=== PATIENT | male | born 1990 | race Caucasian/White ===

== ENCOUNTER → 2017-10-15 | Outpatient (CLI) | payer BC ==
--- NOTE | 2017-10-15 15:52 | US ---
EXAMINATION TYPE: US thyroid st tissue head/neck DATE OF EXAM: 10/15/2017 COMPARISON: NONE CLINICAL HISTORY: R22.1 Localized Swelling Mass Neck. GLAND SIZE: Right Lobe: 6.3 x 1.7 x 1.8 cm Overall Parenchyma: homogenous Left Lobe: 5.3 x 1.4 x 1.6 cm Overall Parenchyma: homogeneous Isthmus Thickness: 0.4 cm NODULES RIGHT: # of nodules measured on right: 0 LEFT: # of nodules measured on left: 0 ISTHMUS: # of nodules measured in the isthmus: 0 Bilateral neck scanned, no evidence of lymphadenopathy. IMPRESSION: Thyroid measurements as described.
== END | disposition home or self-care (01) ==
LOC: RADUSWWP 13:35
PROVIDERS: ATTEND Family Medicine
DX: R22.1 Localized swelling, mass and lump, neck (principal)
CPT/HCPCS: 76536

== ENCOUNTER 2021-05-21 10:44 | Emergency (ER) | payer BC, OTHER ==
[2021-05-21 10:52] VITALS: PULSE 68; RESP 18; TEMP 99.3
--- NOTE | 2021-05-21 11:24 | XR ---
Left foot HISTORY: Pain following trauma. COMPARISON: None. TECHNIQUE: 2 views left foot were obtained. FINDINGS: There is dislocation of the first metatarsal phalangeal joint.. There are no fractures. The remaining osseous structures are intact. There is no radiopaque foreign body or abnormal soft tissue calcifica tion. IMPRESSION: Dislocation of the first metatarsal phalangeal joint.
--- NOTE | 2021-05-21 11:39 | ED ---
Lower Extremity Injury HPI - General Chief Complaint: Extremity Injury, Lower Stated Complaint: [facility] Toe injury/Diving Time Seen by Provider: 05/21/21 10:59 Source: patient, RN notes reviewed Mode of arrival: wheelchair Limitations: no limitations - History of Present Illness Initial Comments: This a 30-year-old male presents emergency Department chief complaint of left foot toe injury. Patient states that he has great toe shows some deformity states he has minimal to no discomfort he states he was diving became water noticed that it was deformed, painful to walk on no other complaints noted patient denies any discoloration. - Related Data Allergies Allergy/AdvReac Type Severity Reaction Status Date / Time root vegetable and fruit Allergy Rash/Hives Uncoded 05/21/21 10:52 Review of Systems ROS Statement: Those systems with pertinent positive or pertinent negative responses have been documented in the HPI. ROS Other: All systems not noted in ROS Statement are negative. Past Medical History Past Medical History: No Reported History Additional Past Medical History / Comment(s): torn acl History of Any Multi-Drug Resistant Organisms: None Reported Additional Past Surgical History / Comment(s): acl Past Psychological History: No Psychological Hx Reported Smoking Status: Current every day smoker Past Alcohol Use History: Occasional Past Drug Use History: None Reported General Exam Limitations: no limitations General appearance: alert, in no apparent distress Head exam: Present: atraumatic, normocephalic, normal inspection Respiratory exam: Present: normal lung sounds bilaterally. Absent: respiratory distress, wheezes, rales, rhonchi, stridor Cardiovascular Exam: Present: regular rate, normal rhythm, normal heart sounds. Absent: systolic murmur, diastolic murmur, rubs, gallop, clicks Extremities exam: Present: other (Left foot first digit there is not is deformity at the MTP joint) Course Vital Signs 05/21/21 10:49 Temperature 99.3 F Pulse Rate 68 Respiratory 18 Rate Blood Pressure 162/96 O2 Sat by Pulse 100 Oximetry Procedures - Orthopedic Joint Reduction Joint #1 Consent Obtained: verbal consent Side: left Joint Reduction Location: toe Analgesia: none Technique Used: traction/counter-traction Post-Reduction Neuro Exam: intact Post-Reduction Vascular Exam: intact Post Reduction X-Ray Obtained: Yes Post Reduction X-Ray Results: reduced Splint Applied: No Patient Tolerated Procedure: well Medical Decision Making - Medical Decision Making Patient presented for toe dislocations was easily reduced with no comp patients return parameters were discussed. Disposition Clinical Impression: Dislocation of toe, left, closed Disposition: HOME SELF-CARE Condition: Stable Instructions (If sedation given, give patient instructions): Finger Dislocation (ED) Additional Instructions: Please return to the Emergency Department if symptoms worsen or any other concerns. Is patient prescribed a controlled substance at d/c from ED?: No Referrals: Rehan Kennedy MD [Primary Care Provider] - 1-2 days Time of Disposition: 11:39
--- NOTE | 2021-05-21 11:50 | XR ---
Left big toe. HISTORY: Post reduction for dislocation COMPARISON: 05/21/2021 prereduction. TECHNIQUE: 3 views of the left big toe were obtained. FINDINGS: There has been reduction of the first metatarsal phalangeal dislocation. There is near anatomic align ment. There is no fracture. There is no radiopaque foreign body or abnormal soft tissue calcification . IMPRESSION: Satisfactory reduction of the dislocation of the first metatarsal phalangeal joint.
[2021-05-21 11:53] VITALS: BP 151/96
== END 2021-05-21 11:53 | disposition home or self-care (01) ==
LOC: EC 10:44
DX: S93.105A Unspecified dislocation of left toe(s), initial encounter (principal); F17.200 Nicotine dependence, unspecified, uncomplicated; X58.XXXA Exposure to other specified factors, initial encounter
CPT/HCPCS: 28630; 99284

== ENCOUNTER → 2021-05-30 | Outpatient (CLI) | payer OTHER ==
--- NOTE | 2021-05-30 16:05 | XR ---
EXAMINATION TYPE: XR foot complete LT DATE OF EXAM: 05/30/2021 CLINICAL HISTORY: pain TECHNIQUE: Frontal, lateral and oblique images of the left foot are obtained. COMPARISON: None. FINDINGS: There is no acute fracture/dislocation evident. The joint spaces appear within normal resendiz its. The overlying soft tissue appears unremarkable. IMPRESSION: There is no acute fracture or dislocation. ICD 10 NO FRACTURE, INITIAL EVALUATION
== END | disposition home or self-care (01) ==
LOC: RADXRMAIN 15:48
PROVIDERS: ATTEND Emergency Medicine
DX: M79.672 Pain in left foot (principal)

== ENCOUNTER 2024-08-23 13:13 | Emergency (ER) | payer BC ==
--- NOTE | 2024-08-23 14:08 | ED ---
Wound/Laceration HPI - General Chief Complaint: Wound/Laceration Stated Complaint: L foot injury Time Seen by Provider: 08/23/24 14:06 Source: patient, RN notes reviewed Mode of arrival: ambulatory Limitations: no limitations - History of Present Illness Initial Comments: 34-year-old male presenting for left foot injury prior to arrival. States he was walking out of the [place] when he stepped on something that went through his boot and into the bottom of his foot. Last tetanus unknown. - Related Data Previous Rx's Medication Instructions Recorded Ciprofloxacin HCl [Cipro] 500 mg PO Q12HR 5 Days #10 tablet 08/23/24 Allergies Allergy/AdvReac Type Severity Reaction Status Date / Time Penicillins Allergy Anaphylaxis Verified 08/23/24 13:37 root vegetable and fruit Allergy Rash/Hives Uncoded 05/21/21 10:52 Review of Systems ROS Statement: Those systems with pertinent positive or pertinent negative responses have been documented in the HPI. ROS Other: All systems not noted in ROS Statement are negative. Past Medical History Past Medical History: No Reported History Additional Past Medical History / Comment(s): torn acl History of Any Multi-Drug Resistant Organisms: None Reported Additional Past Surgical History / Comment(s): acl Past Psychological History: No Psychological Hx Reported Smoking Status: Current every day smoker Past Alcohol Use History: Occasional Past Drug Use History: None Reported General Exam - General Exam Comments Initial Comments: Visual Physical Exam Vital signs reviewed General: Well-appearing, nontoxic, no acute distress. Head: Normocephalic, atraumatic Eyes: PERRLA, EOMI ENT: Airway patent Chest: Nonlabored breathing Skin: No visual rash, normal skin tone Neuro: Alert and oriented 3 Musculoskeletal: No gross abnormalities Limitations: no limitations General appearance: alert, in no apparent distress Head exam: Present: atraumatic, normocephalic, normal inspection Left Lower Leg exam: Present: normal inspection, full ROM. Absent: tenderness, swelling Ankle exam: Present: normal inspection, full ROM. Absent: tenderness, swelling Foot/Toe exam: Present: full ROM, tenderness, puncture wound (2 cm puncture wound with protruding subcutaneous fat on ventral aspect of left foot). Absent: erythema Neurovascular tendon exam: Present: no vascular compromise. Absent: pulse defi cit, abnormal cap refill, sensory deficit Neurological exam: Present: alert, oriented X3 Psychiatric exam: Present: normal affect, normal mood Skin exam: Present: warm, dry, intact, normal color. Absent: rash Course Vital Signs 08/23/24 13:34 Temperature 97.4 F L Pulse Rate 94 Respiratory 17 Rate Blood Pressure 116/68 O2 Sat by Pulse 98 Oximetry Procedures - Laceration Laceration #1 Consent Obtained: verbal consent Indication: laceration Site: foot Size (cm): 2 Description: irregular Depth: simple, single layer Sedation/Analgesia: none Anesthetic Used: lidocaine 1%, without epi Anesthesia Technique: local infiltration Amount (mls): 4 Pre-repair: wound explored, irrigated extensively, deep structures intact Type of Sutures: nylon Size of Sutures: 4-0 Number of Sutures: 2 Technique: simple, interrupted Patient Tolerated Procedure: well, no complications Additional Comments: Neurovascularly intact status post procedure Medical Decision Making - Medical Decision Making I completed the quick note portion of this chart signed Shelly Nava PA-C Was pt. sent in by a medical professional or institution ([facility], CASE PACKER, urgent care, hospital, or shelter...) When possible be specific @ -No Did you speak to anyone other than the patient for history (EMS, parent, family, police, friend...)? What history was obtained from this source @ -No Did you review nursing and triage notes (agree or disagree)? Why? @ -I reviewed and agree with nursing and triage notes Were old charts reviewed (outside hosp., previous admission, EMS record, old EKG, old radiological studies, urgent care reports/EKG's, shelter records)? Report findings @ -No old charts were reviewed Differential Diagnosis (chest pain, altered mental status, abdominal pain women, abdominal pain men, vaginal bleeding, weakness, fever, dyspnea, syncope, headache, dizziness, GI bleed, back pain, seizure, CVA, palpatations, mental health, musculoskeletal)? @ -Differential Musculoskeletal Muscular strain, contusion, ligament sprain, fracture, arthritis, septic arthritis, bursitis, cellulitis, muscle spasm, nerve compression, DVT, arterial occlusion, herpes zoster, electrolyte abnormality, tumor.... This is not meant to be in all inclusive list EKG interpreted by me (3pts min.). @ -None X-rays interpreted by me (1pt min.). @ -X-ray left foot reveals no acute process or foreign body CT interpreted by me (1pt min.). @ -None done U/S interpreted by me (1pt. min.). @ -None done What testing was considered but not performed or refused? (CT, X-rays, U/S, labs)? Why? @ -None What meds were considered but not given or refused? Why? @ -None Did you discuss the management of the patient with other professionals (professionals i.e. DrMiriam, PA, CASE PACKER, lab, RT, psych nurse, community mental health social worker, injection mold tooling technician, teacher, parachute/combatant diver officer, rn case mgr)? Give summary @ -No Was smoking cessation discussed for >3mins.? @ -No Was critical care preformed (if so, how long)? @ -No Were there social determinants of health that impacted care today? How? (Homelessness, low income, unemployed, alcoholism, drug addiction, transportation, low edu. Level, literacy, decrease access to med. care, [facility], rehab)? @ -No Was there de-escalation of care discussed even if they declined (Discuss DNR or withdrawal of care, Hospice)? DNR status @ -No What co-morbidities impacted this encounter? (DM, HTN, Smoking, COPD, CAD, Cancer, CVA, ARF, Chemo, Hep., AIDS, mental health diagnosis, sleep apnea, morbid obesity)? @ -None Was patient admitted / discharged? Hospital course, mention meds given and route, prescriptions, significant lab abnormalities, going to OR and other pertinent info. @ -Discharge. 34-year-old male presenting for puncture wound to left foot prior to arrival. There is a 2 cm gaping puncture wound with subcutaneous fat protruding on ventral aspect of left foot. Neurovascularly intact. Tetanus was updated. X-ray left foot reveals no acute process or foreign body. Wound was thoroughly irrigated and 2 sutures were performed to achieve homeostasis. Wound was dressed appropriately. Appropriate return precautions and follow-up care discussed. Advised to follow-up in 7 days for suture removal. Patient was provided with outpatient prescription for antibiotic for prophylaxis. Case was discussed with the ED attending Dr. Martin. Undiagnosed new problem with uncertain prognosis? @ -No Drug Therapy requiring intensive monitoring for toxicity (Heparin, Nitro, Insulin, Cardizem)? @ -No Were any procedures done? @ -Yes, 2 sutures were performed to left foot Diagnosis/symptom? @ -Left foot puncture wound Acute, or Chronic, or Acute on Chronic? @ -Acute Uncomplicated (without systemic symptoms) or Complicated (systemic symptoms)? @ -Uncomplicated Side effects of treatment? @ -No Exacerbation, Progression, or Severe Exacerbation? @ -No Poses a threat to life or bodily function? How? (Chest pain, [place], [place], pneumonia, PE, COPD, DKA, ARF, appy, cholecystitis, CVA, Diverticulitis, Homicidal, Suicidal, threat to staff... and all critical care pts) @ -No Disposition Clinical Impression: Puncture wound of left foot Disposition: HOME SELF-CARE Condition: Stable Instructions (If sedation given, give patient instructions): Puncture Wound (ED) Additional Instructions: Take ciprofloxacin as prescribed. Follow-up in 7 days for suture removal. Keep wound dry for the first 24 hours, then you may gently wash with antibacterial soap and water. Please return to the Emergency Department if symptoms worsen or any other concerns. Prescriptions: Ciprofloxacin HCl [Cipro] 500 mg PO Q12HR 5 Days #10 tablet Is patient prescribed a controlled substance at d/c from ED?: No Referrals: Rehan Kennedy MD [Primary Care Provider] - 1-2 days Time of Disposition: 16:53
--- NOTE | 2024-08-23 14:33 | XR ---
EXAMINATION TYPE: XR foot complete LT DATE OF EXAM: 08/23/2024 2:22 PM COMPARISON: None. CLINICAL INDICATION: Male, 34 years old with history of left foot injury, pain TECHNIQUE: Frontal, lateral, and oblique images of the left foot are obtained. FINDINGS: There is no acute fracture/dislocation evident in the left foot. The joint spaces in the left foot appear within normal limits. The overlying soft tissue appears unremarkable. IMPRESSION: There is no acute fracture or dislocation in the left foot. [facility], , 08/23/2024 2:31 PM
[2024-08-23] MEDS: IBUPROFEN 800 MG TAB PO STA (16:28)
[2024-08-23] MEDS: LIDOCAINE 1% INJ 10MG/ML (20 ML MDV) SQ ONE (16:28)
[2024-08-23 17:08] VITALS: BP 131/88; PULSE 88; RESP 16; TEMP 97.9
[2024-08-23] MEDS: CIPROFLOXACIN HCL 500 MG TAB PO STA (17:08)
[2024-08-23] MEDS: DIPH,PERTUS(ACELL)TETVAC-LF 0.5 ML VIAL IM ONE (17:12)
== END 2024-08-23 17:13 | disposition home or self-care (01) ==
LOC: EC 13:13
DX: S91.332A Puncture wound without foreign body, left foot, initial encounter (principal); F17.200 Nicotine dependence, unspecified, uncomplicated; Z88.0 Allergy status to penicillin; Z91.018 Allergy to other foods; Z23 Encounter for immunization; W26.8XXA Contact with other sharp object(s), not elsewhere classified, initial encounter; Y93.01 Activity, walking, marching and hiking
CPT/HCPCS: 73630; 90715; 12001; 99283; 90471; J2003